=== PATIENT | male | born 1955 | race Caucasian/White ===

== ENCOUNTER 2018-06-24 11:00 | Day surgery (SDC) | payer BC ==
[~2018-06-24 11:00] MED LIST: PROPOFOL 200 MG INJ
[2018-06-24] MEDS ORDERED: hydrALAzine 20 MG INJ IV (14:00)
[2018-06-24] MEDS ORDERED: LIDOCAINE 2% (SDV) 5 ML INJ (14:00)
[2018-06-24] MEDS ORDERED: ONDANSETRON 4 MG INJ IV (14:00)
[2018-06-24] MEDS ORDERED: LABETALOL HCL 20MG INJ IV (14:00)
[2018-06-24] MEDS ORDERED: PROPOFOL 40 ML (14:00)
== END 2018-06-24 15:34 | disposition home or self-care (01) ==
LOC: GIL 11:00
DX: Z12.11 Encounter for screening for malignant neoplasm of colon (principal); K64.8 Other hemorrhoids; I10 Essential (primary) hypertension; I25.10 Atherosclerotic heart disease of native coronary artery without angina pectoris; E78.5 Hyperlipidemia, unspecified
CPT/HCPCS: 45378